=== PATIENT | female | born 1970 | race Caucasian/White ===

== ENCOUNTER 2022-01-29 11:00 | Outpatient (REF) | payer OTHER, SELFPAY ==
[2022-01-31 14:32] LABS: Immunoglobulin A 126 mg/dL (47-310)
[2022-02-02 20:37] LABS: Gliadin Deamidated IgA Ab <1.0 U/mL; Gliadin Deamidated IgG Ab <1.0 U/mL; Transglutaminase Ab IgG <1.0 U/mL; Transglutaminase IgA <1.0 U/mL
[2022-02-05 13:52] LABS: Endomysial IgA Antibody Negative (Negative)
== END 2022-01-29 11:01 | disposition home or self-care (01) ==
LOC: HO.10HDL 11:00
PROVIDERS: Visit Provider Internal Medicine
DX: R19.7 Diarrhea, unspecified (principal)
CPT/HCPCS: 36415; 82784; 86231; 86258; 86364

== ENCOUNTER 2022-02-03 10:01 | Emergency (ER) | payer OTHER, SELFPAY ==
--- NOTE | ~2022-02-03 | CT_ITS ---
EXAMINATION: CT ABDOMEN AND PELVIS WITHOUT CONTRAST CLINICAL INFORMATION: Right lower quadrant pain. Kidney stone or appendicitis? Hematuria. COMPARISON: Abdomen ultrasound from 04/03/2011. TECHNIQUE: Multidetector volumetric imaging was performed from the superior aspect of the liver through the pubic symphysis. Sagittal and coronal reformatted images were obtained on the technologist's workstation. This CT examination was performed using dose optimization techniques as appropriate, variously including the following: *Automated exposure control *Adjustment of mA and/or kV according to patient size (this includes techniques or standardized protocols for targeted exams where dose is matched to indication/reason for exam; i.e. extremities or head) *Use of iterative reconstruction technique DLP: 537 mGy-cm FINDINGS: LUNG BASES: An old small calcified granuloma is present in the right lower lobe (image 89, series 4). No suspicious lung nodule, consolidation or pleural effusion. There are a few linear opacities of minimal atelectasis in the bases. LIVER: The liver has normal size, shape, and attenuation. No evidence of liver mass. GALLBLADDER AND BILIARY TREE: Gallbladder contains a 1.6 cm rim calcified stone. No gallbladder wall thickening or pericholecystic fluid. No dilated bile ducts. PANCREAS: Normal. No edema, pancreatic ductal dilatation or mass. SPLEEN: Normal. ADRENAL GLANDS: Normal. KIDNEYS AND URETERS: Kidneys have normal size, cortical thickness and cortical attenuation with exception of a 1.7 cm simple-appearing cyst of the right kidney. No renal imaging follow-up is recommended for a simple cyst. There is mild symmetric fullness of each renal pelvis but no overt caliectasis of either kidney. No perinephric edema or perinephric fluid collection. Multiple small bilateral renal stones are present. The stones are too small for acquisition of a reliable density measurement. A cluster of two stones in the right lower pole occupies an area measuring up to 0.6 cm maximum dimension. A 0.3 cm stone is seen along the right posterior bladder wall at the level of the ureterovesical junction. BLADDER: The urinary bladder has normal wall thickness. Multiple phleboliths are seen in the lower pelvis projecting posterior to the bladder. Also, there is the 0.3 cm stone at the level of the right ureteral orifice/ureterovesical junction. BOWEL AND PERITONEUM: Stomach is unremarkable. No dilated loops of bowel. The appendix is normal. No overt bowel wall thickening or mesenteric fat stranding. No ascites or pneumoperitoneum. ABDOMINAL WALL: Unremarkable. VASCULATURE: Unremarkable. LYMPH NODES: No pathologic sized lymph nodes in the abdomen or pelvis. No inguinal lymphadenopathy. PELVIC VISCERA: The retroverted uterus has normal size and contour. A contraceptive device is well centered within the endometrium. The adnexa are unremarkable. No pelvic free fluid. SKELETAL: Moderate degenerative disc space loss, vacuum disc phenomenon, mild endplate sclerosis and osteophytosis at L5-S1. No suspicious bone lesions. CT/CT abdomen pelvis wo con IMPRESSION: * Multiple bilateral small renal stones are present. No hydronephrosis or perinephric edema. * 0.3 cm stone along the right posterior bladder wall is at the level of the ureterovesical junction. However, there is no associated hydroureter or periureteral edema. * Cholelithiasis without evidence of cholecystitis.
[2022-02-03 10:05] VITALS: BP 111/74; PULSE 50; RESP 18; O2SAT 100; BMI 24.3
[2022-02-03 10:21] LABS: MANUAL DIFF FLAG NO
[2022-02-03 10:23] LABS: Basophils Percent Auto 0.5 % (0-2); Eosinophils Absolute Auto 0.1 X10*3/uL (0.0-0.4); Eosinophils Percent Auto 1.8 % (0-4); Hematocrit 38.2 % (37.0-47.0); Hemoglobin 12.7 g/dl (12.0-16.0); Imm Gran Abs Auto 0.02 X10*3/uL (0.00-0.03); Imm Gran Pct Auto 0.4 % (0.0-0.4); Lymphocytes Absolute Auto 1.5 X10*3/uL (1.2-4.9); Lymphocytes Percent Auto 26.7 % (20-40); Mean Corpuscular HGB Conc 33.2 g/dl (31.0-35.0); Mean Corpuscular Hemoglobin 30.2 pg (27.0-33.0); Mean Corpuscular Volume 90.7 fL (80.0-98.0); Mean Platelet Volume 9.2 fL (9.4-12.3); Monocytes Absolute Auto 0.5 X10*3/uL (0.1-1.2); Monocytes Percent Auto 9.4 % (2-11); Neutrophils Absolute Auto 3.4 x10*3/uL (2.0-8.3); Neutrophils Percent Auto 61.2 % (45-73); Platelet Count 214 X10*3/uL (160-400); Red Blood Count 4.21 X10*6/uL (4.20-5.50); Red Cell Distribution Width 13.2 % (11.0-16.0); White Blood Count 5.6 X10*3/uL (4.8-10.8)
[2022-02-03 10:39] LABS: Alanine Aminotransferase 26 U/L (0-31); Aspartate Amino Transferase 30 U/L (5-31); Blood Urea Nitrogen 17 mg/dL (9-16); Estimated Glomerular Filt Rate > 60
[2022-02-03 10:48] LABS: Appearance Urine HAZY; Color Urine YELLOW; Glucose Urine UA NEG (NEG); Leukocyte Esterase Urine NEG (NEG); Nitrite Urine NEG (NEG); PH 5.5 (5.0-8.0); Specific Gravity - Urine >= 1.030 (1.005-1.025); UACC Culture Trigger NO; Urine Blood 3+ (NEG); Urine Ketones NEG (NEG); Urine Protein NEG (NEG-TRACE)
[2022-02-03 10:57] LABS: Squamous Epithelial Cell Urine 1+ /LPF
[2022-02-03 10:58] LABS: RBC Urine 30-49 /HPF (0); WBC Urine 0 /HPF (0-4)
[2022-02-03 10:59] LABS: Mucus Urine 1+ /LPF
--- NOTE | 2022-02-03 13:14 | ED_ITS ---
HPI - General Adult General Chief complaint: Abdominal Pain Stated complaint: Lower R abd pain Time Seen by Provider: 02/03/22 12:47 Source: patient Mode of arrival: ambulatory Limitations: no limitations History of Present Illness HPI narrative: 51-year-old female with history of history interstitial cystitis and kidney stones presents to the ED for sharp vaginal/groin pain and right lower quadrant abdominal pain. Patient states last night was having some right lower quadrant abdominal pain RADITING TO GROIN vaginal area. Patient states also increased urinary frequency and mild dysuria. Patient denies any vaginal lesions or vaginal discharge. Patient states she has not been sexually active for the last 4 years and has IUD. Related Data Previous Rx's Medication Instructions Recorded naproxen 500 mg tablet 500 mg PO BID PRN pain 10 days #20 02/03/22 tabs prednisone 20 mg tablet 40 mg PO DAILY 5 days #10 tabs 02/03/22 tamsulosin 0.4 mg capsule (Flomax) 0.4 mg PO DAILY 7 days #7 caps 02/03/22 Allergies Allergy/AdvReac Type Severity Reaction Status Date / Time oxycodone Allergy Abdominal Verified 02/03/22 10:05 Pain Review of Systems Review of Systems: Right lower abdominal pain/groin pain PMFSH Social History Social History Advance Directives: Yes Advance Directives Information Provided: Yes Advance Directives on File: No Physical Exam ED Vital Signs: Vital Signs - 24 hr 02/03/22 10:05 Pulse Rate 50 Respiratory Rate 18 Blood Pressure 111/74 Pulse Oximetry 100 Oxygen Delivery Method Room Air BMI result Body Mass Index 24.3 Const General: cooperative, healthy appearing, comfortable, no acute distress, well developed, alert, awake and Physically active Orientation/consciousness: patient oriented x3 HENMT Head: Yes normal to inspection, Yes No palpable skull fracture present, Yes normocephalic, Yes atraumatic and No abrasion Eyes General: appearance normal, both eyes and all related structures Neck Neck: Yes normal visual inspection, Yes full ROM, Yes no lymphadenopathy, Yes no meningeal signs, Yes trachea midline, Yes supple, No anterior neck swelling and No tender Chest Chest palpation & inspection: normal inspection of the chest and normal palpation of entire chest wall Resp Effort & Inspection: normal respiratory effort and able to speak in complete sentences Auscultation: clear to auscultation bilaterally Cardio Jugular venous distension: no JVD Heart sounds: S1 normal heart sound present and S2 normal heart sound present GI Inspection: Yes normal to inspection and No abdominal wall ecchymosis Palpation (GI): Soft to palpation, not firm, Tenderness to palpation present (GI) in the RLQ, no guarding and not rigid General: No CVA tenderness and Yes no CVA tenderness Back/Spine/Pelvis Back: no CVA tenderness, No CVA tenderness and No back tenderness Skin General skin exam: no rashes or lesions noted and elasticity normal Neuro General: patient oriented x3, gait normal, tone normal, no meningeal signs and CN's II-XI intact bilaterally Cranial nerves: Yes CN's II-XII intact bilaterally Extrem General: Yes normal to inspection and Yes full ROM Psych Appearance: grossly normal, well kempt and not disheveled Course Course Course Narrative: Patient labs ordered Reevaluation(s) Reevaluation #1: urine shows blood. Patient has not been sexually active for [address] scan ordered to make sure there is no kidney stones. Abdominal CT scan does shows right kidney stone in the bladder ureter vesicle junction. Negative for hydroureter or nephrosis. Patient discharged with Flomax and steroids. No need for antibiotics ray negative for any bacteria. patient also has a gallstone, but no cholcecystitis and was inforemd of this. Time: 15:26 Medical Decision Making MDM Narrative Medical decision making narrative: kidney stones Lab Data Result diagrams: 02/03/22 10:15 02/03/22 10:15 Labs: Lab Results 02/03/22 02/03/22 02/03/22 Range/Units 10:15 10:15 10:29 WBC 5.6 (4.8-10.8) X10*3/uL RBC 4.21 (4.20-5.50) X10*6/uL Hgb 12.7 (12.0-16.0) g/dl Hct 38.2 (37.0-47.0) % MCV 90.7 (80.0-98.0) fL MCH 30.2 (27.0-33.0) pg MCHC 33.2 (31.0-35.0) g/dl RDW 13.2 (11.0-16.0) % Plt Count 214 (160-400) X10*3/uL MPV 9.2 L (9.4-12.3) fL Immature Gran % (Auto) 0.4 (0.0-0.4) % Neut % (Auto) 61.2 (45-73) % Lymph % (Auto) 26.7 (20-40) % [place] % (Auto) 9.4 (2-11) % Eos % (Auto) 1.8 (0-4) % Baso % (Auto) 0.5 (0-2) % Lymph # (Auto) 1.5 (1.2-4.9) X10*3/uL [place] # (Auto) 0.5 (0.1-1.2) X10*3/uL Eos # (Auto) 0.1 (0.0-0.4) X10*3/uL Baso # (Auto) 0.0 (0.0-0.2) X10*3/uL Abs Immat Gran (auto) 0.02 (0.00-0.03) X10*3/uL Absolute Neuts (auto) 3.4 (2.0-8.3) x10*3/uL Absolute Nucleated RBC 0.000 (0.0-0.012) X10*3/uL Nucleated RBC % (auto) 0.0 (0.0-0.2) /100WBC Sodium 138 (135-145) mmol/L Potassium 4.3 (3.3-5.1) mmol/L Chloride 105 (96-108) mmol/L Carbon Dioxide 26 (22-29) mmol/L Anion Gap 11 L (12-20) BUN 17 H (9-16) mg/dL Creatinine 0.80 (0.5-1.4) mg/dL Estim Creat Clear Calc 83.0 Estimated GFR > 60 Random Glucose 121 H (60-115) mg/dL Calcium 9.2 (8.4-10.2) mg/dL Total Bilirubin 1.4 H (0.0-1.0) mg/dL AST 30 (5-31) U/L ALT 26 (0-31) U/L Alkaline Phosphatase 62 (39-117) U/L Total Protein 6.7 (6.5-8.0) g/dL Albumin 4.2 (3.5-5.0) g/dL Urine Color YELLOW Urine Appearance HAZY Urine pH 5.5 (5.0-8.0) Ur Specific [place] >= 1.030 H (1.005-1.025) Urine Protein NEG (NEG-TRACE) MG/DL Urine Glucose (UA) NEG (NEG) MG/DL Urine Ketones NEG (NEG) MG/DL Urine Blood 3+ H (NEG) Urine Nitrite NEG (NEG) Ur Leukocyte Esterase NEG (NEG) Urine RBC 30-49 H (0) /HPF Urine WBC 0 (0-4) /HPF Ur Squamous Epith Cells 1+ /LPF Urine Bacteria NONE /LPF Urine Mucus 1+ /LPF Discharge Plan Discharge Clinical Impression: Calculus, ureter Patient Disposition: Home, Self-Care Instructions: Ureteral Stones (ED) Additional Instructions: CT scan shows multiple kidney stones and also a stone in your ureter /bladder. you will need Flomax, pain medication, and steroids. Return to the ED immediately for any abdominal pain, nausea, vomiting, fever, chills, flank pain, or any other concerning symptoms. Prescriptions: New prednisone 20 mg tablet 40 mg PO DAILY 5 Days Qty: 10 0RF tamsulosin [Flomax] 0.4 mg capsule 0.4 mg PO DAILY 7 Days Qty: 7 0RF naproxen 500 mg tablet 500 mg PO BID PRN (Reason: pain) 10 Days Qty: 20 0RF Referrals: Mac Frias MD [Physician] - ( Right Ureter stone) Stand Alone Forms: Work/School Release Interventions: ED Discharge Assessment Last Done: 02/03/22 15:51 Discharge Date/Time: 02/03/22 15:51 Print Language: Danish
[2022-02-03 14:38] LABS: Albumin Level 4.2 g/dL (3.5-5.0); Alkaline Phosphatase 62 U/L (39-117); Anion Gap 11 (12-20); Bilirubin Total 1.4 mg/dL (0.0-1.0); Calcium 9.2 mg/dL (8.4-10.2); Carbon Dioxide 26 mmol/L (22-29); Chloride 105 mmol/L (96-108); Glucose Random 121 mg/dL (60-115); Potassium 4.3 mmol/L (3.3-5.1); Sodium 138 mmol/L (135-145); Total Protein 6.7 g/dL (6.5-8.0)
== END 2022-02-03 15:51 | disposition home or self-care (01) ==
PROVIDERS: Emergency Provider Emergency Medicine; PCP Nurse Practitioner Family
DX: N20.2 Calculus of kidney with calculus of ureter (principal); Z87.442 Personal history of urinary calculi
CPT/HCPCS: 36415; 74176; 80053; 81001; 85025; 99283; 99284

== ENCOUNTER 2022-03-10 16:44 | Outpatient (REF) | payer OTHER, SELFPAY ==
[2022-03-18 13:12] LABS: Stone Source KIDNEY STONE
== END 2022-03-10 16:45 | disposition home or self-care (01) ==
LOC: HO.LNP 16:44
PROVIDERS: Visit Provider Urology
DX: N20.0 Calculus of kidney (principal)
CPT/HCPCS: 82365; 88300

== ENCOUNTER 2022-05-27 06:23 | Day surgery (SDC) | payer OTHER, SELFPAY ==
--- NOTE | 2022-05-26 13:44 | HO.ANESPROP2 ---
Documented by User: Ita Aburto NP 05/26/22 13:45 HPI - Anesthesia Eval Consult details Narrative: 51yo F for Colonoscopy PMFSH Active Problems Active Problems: All Active Problems (Updated 05/26/22 @ 13:32 by Azeb Moe, OWEN) Nephrolithiasis (Acute) Past Medical History Medical History Anxiety and depression Interstitial cystitis Rheumatoid arthritis Surgical History Surgical History H/O dilation and curettage Hx of tonsillectomy Social History Social History Patient Tobacco Use Status: Never used Tobacco Use of substances other than those prescribed or required for medical reasons: No Are you DNR?: No Advance Directives: No Advance Directives Information Provided: Yes Meds Allergies Allergy/AdvReac Type Severity Reaction Status Date / Time oxycodone Allergy Abdominal Verified 03/09/22 15:11 Pain Home Medications Medication Instructions Recorded Confirmed Last Taken Type adalimumab 40 mg/0.8 mL mg subcut 05/26/22 05/26/22 Unknown History subcutaneous pen kit (Humira Pen) alprazolam 0.25 mg tablet 1 tab PO BID 05/26/22 05/26/22 Unknown History bupropion HCl 100 mg tablet,12 hr 2 tab PO DAILY 05/26/22 05/26/22 Unknown History sustained-release methotrexate sodium 2.5 mg tablet 10 tab PO QWEEK 05/26/22 05/26/22 Unknown History Exam Exam Date and Time: May 26, 2022 1344 Pertinent Lab Results Pertinent Lab Results: Laboratory Tests 02/03/22 02/03/22 10:15 10:15 WBC 5.6 Hgb 12.7 Hct 38.2 Plt Count 214 Sodium 138 Potassium 4.3 Chloride 105 Carbon Dioxide 26 BUN 17 H Creatinine 0.80 Assessment and Plan Assessment Anesthesia Assessment: Chart Reviewed Documented by User: Efrain Guaman MD 05/27/22 07:32 PMFSH Active Problems Active Problems: All Active Problems (Updated 05/26/22 @ 13:32 by Azeb Moe, RN) Nephrolithiasis (Acute)[place] Past Medical History Medical History Anxiety and depression Interstitial cystitis Rheumatoid arthritis Family History Family history of problems with anesthesia: No Surgical History Surgical History H/O dilation and curettage Hx of tonsillectomy History of Problems with Anesthesia: No Social History Social History Patient Tobacco Use Status: Never used Tobacco Use of substances other than those prescribed or required for medical reasons: No Are you DNR?: No Advance Directives: No Advance Directives Information Provided: Yes Meds Allergies Allergy/AdvReac Type Severity Reaction Status Date / Time oxycodone Allergy Abdominal Verified 03/09/22 15:11 Pain Home Medications Medication Instructions Recorded Confirmed Last Taken Type adalimumab 40 mg/0.8 mL mg subcut 05/26/22 05/26/22 Unknown History subcutaneous pen kit (Humira Pen) alprazolam 0.25 mg tablet 1 tab PO BID 05/26/22 05/26/22 Unknown History bupropion HCl 100 mg tablet,12 hr 2 tab PO DAILY 05/26/22 05/26/22 Unknown History sustained-release methotrexate sodium 2.5 mg tablet 10 tab PO QWEEK 05/26/22 05/26/22 Unknown History Exam Airway Mallampati Class: I TM Dist: >3cm Loose/Missing/Broken Teeth: No Heart: rrr Assessment and Plan Final Anesthetic Review Family History of Problems with Anesthesia: No History of Problems with Anesthesia: No ASA Class: II Final Preanesthetic Review: No Changes in Pt Med Stat, Meds/Allgs Chart Reviewed, Consent Obtained/Reviewed and Anes Risks/Benef Reviewed Patient Risk: Low Procedure Risk: Low Anesthetic Plan Anesthetic Plan: MAC: Disposition: Standard PACU
[2022-05-27 06:47] VITALS: BP 119/86; PULSE 64; RESP 18; TEMP 36.3; O2SAT 96; BMI 23.6
[2022-05-27] MEDS: Lactated Ringers 1,000 ML 100 ML IVCONT (07:33)
[2022-05-27 08:30] VITALS: BP 116/76; PULSE 67; RESP 20; TEMP 36.3; O2SAT 99
--- NOTE | 2022-05-27 08:30 | P.BOP_ITS ---
Brief Operative Note Date of Service: 05/27/22 Pre-op diagnosis: Screening Post-op diagnosis: other (Polyps) Procedure: Colonoscopy to the cecum and TI with bx/removal of polyp, and hot snare polypectomy of an AC polyp with placement of 1 Resolution clip. Surgeon: Mychal Martinez Anesthesia: MAC Was an Insights Analyst used for this Procedure?: No Estimated blood loss (mL): 2.0 Pathology: other (A. Cecal polyp B. Ascending colon polyp) Condition: stable Disposition: PACU
[2022-05-27 08:45] VITALS: BP 126/77; PULSE 51; RESP 20; TEMP 36.3; O2SAT 100
--- NOTE | 2022-05-27 08:59 | OP_ITS ---
SURGEON: Mychal Martinez MD INDICATIONS: The patient presents for evaluation of colorectal cancer screening. Full consent obtained from her for this, including risks of bleeding and perforation. PREOPERATIVE DIAGNOSIS: Colorectal cancer screening. POSTOPERATIVE DIAGNOSIS: PROCEDURE PERFORMED: Colonoscopy to the cecum and terminal ileum with biopsy and removal of polyp, and hot snare polypectomy with placement of 1 resolution clip. ESTIMATED BLOOD LOSS: COMPLICATIONS: ANESTHESIA: ASSISTANTS: SPECIMENS: POSTOPERATIVE DIAGNOSES: Colorectal cancer screening, colon polyps, diverticulosis, and internal hemorrhoids. PREOPERATIVE MEDICATION USED: Monitored anesthesia care. DESCRIPTION OF PROCEDURE: The patient was placed in the left lateral decubitus position. The digital rectal exam revealed no abnormalities. The Olympus video pediatric colonoscope was entered into the rectum and advanced easily to the cecum. Once in the cecum, I did identify normal-appearing cecal pouch with appendiceal orifice and a normal-appearing ileocecal valve. The entire cecum was well visualized and appeared normal other than an approximately 3 or 4 mm polyp, which was removed with cold biopsy forceps completely. The terminal ileum was cannulated and appeared normal. The scope was withdrawn back in the colon. The remainder of the cecum appeared normal. The scope was then slowly withdrawn assessing all mucosal surfaces carefully. Preparation was excellent. In the proximal ascending colon was an approximately 10-12 mm slightly raised polyp, which was removed by hot snare polypectomy and recovered by suction. The polypectomy site appeared clean, without any sign of residual polyp, nor bleeding. A single resolution clip was applied with good hemostasis and good deployment. I did not visualize any other polyps, colitis, or angiodysplasia. There was a mild amount of sigmoid diverticulosis. In the rectum, scope was retroflexed visualizing internal hemorrhoids, but no other pathology. The rectal mucosa appeared normal. The scope was straightened and withdrawn from the patient. She tolerated the procedure well and was returned to recovery area in stable condition. IMPRESSION: 1. Colon polyps. 2. Diverticulosis. 3. Internal hemorrhoids. PLAN: The results of the pathology will be checked. If the larger polyp is a tubular adenoma or serrated polyp, I would recommend a repeat colonoscopy in 3 years. If the larger polyp is only hyperplastic and the cecal polyp is a tubular adenoma, I would recommend a followup colonoscopy in 5 years. If both polyps are only hyperplastic, I would then recommend a followup colonoscopy in 10 years. She was advised not to use any aspirin and NSAIDs for 1 week. Mychal Martinez MD RMW/RAMILA / [id number]
[2022-05-27 09:00] VITALS: BP 128/84; PULSE 51; RESP 20; O2SAT 100
--- NOTE | 2022-05-27 09:41 | PC.NURSE ---
PATIENT INSTRUCTED TO NOT USE ASA AND/OR NSAIDS FOR ONE WEEK PER DISCHARGE INSTRUCTIONS. PATIENT STATES SHE COULD NOT STOP USING INDOCIN FOR HER RA. DR. VELARDE NOTIFIED AND HE INSTRUCTED THIS NURSE TO MAKE A NOTE THAT PATIENT WAS INSTRUCTED. PT WAS RE-INSTRUCTED TO NOT TAKE HER INDOCIN FOR ONE WEEK POST PROCEDURE FOR THE RISK OF BLEEDING.
== END 2022-05-27 09:44 | disposition home or self-care (01) ==
PROVIDERS: PCP Nurse Practitioner Family; Visit Provider Internal Medicine
PROC: 0DJD8ZZ Inspection of Lower Intestinal Tract, Via Natural or Artificial Opening Endoscopic (ICD-10-PCS; CPT 45378; principal; 2022-05-27 07:30)
DX: Z12.11 Encounter for screening for malignant neoplasm of colon (principal); D12.0 Benign neoplasm of cecum; D12.2 Benign neoplasm of ascending colon; K57.30 Diverticulosis of large intestine without perforation or abscess without bleeding; K64.8 Other hemorrhoids; K58.9 Irritable bowel syndrome, unspecified; R19.7 Diarrhea, unspecified; M06.9 Rheumatoid arthritis, unspecified; N30.10 Interstitial cystitis (chronic) without hematuria; F41.8 Other specified anxiety disorders; Z79.899 Other long term (current) drug therapy; Z88.8 Allergy status to other drugs, medicaments and biological substances; Z87.442 Personal history of urinary calculi
CPT/HCPCS: 45385; 45380; 88305

== ENCOUNTER 2022-10-10 17:19 | Emergency (ER) | payer OTHER, SELFPAY ==
--- NOTE | 2022-10-10 17:31 | ED.SKABFB ---
HPI - Skin/Abscess/Foreign Bdy General Chief complaint: Animal Bite <JOSE Diaz Last Filed: 10/10/22 17:32> Stated complaint: right hand dog bite <JOSE Diaz Last Filed: 10/10/22 17:32> Time Seen by Provider: 10/10/22 19:13 <JOSE Diaz Last Filed: 10/10/22 17:32> Source: patient <Niru Ashley NP - Last Filed: 10/10/22 22:05> Mode of arrival: ambulatory <SUYAPA Cruz Last Filed: 10/10/22 22:05> Limitations: no limitations <SUYAPA Cruz Last Filed: 10/10/22 22:05> History of Present Illness HPI narrative: 52-year-old female presents with multiple skin abrasion and lacerations from a dog bite. Patient was rescuing her dog while it was being attacked by 2 other dogs. When she picked up her dog, her dog bit her in the hand. She has lacerations to the tip of the right thumb and to the right index finger. <SUYAPA Cruz Last Filed: 10/10/22 22:05> MD complaint: laceration and other (Dog bite) <SUYAPA Cruz Last Filed: 10/10/22 22:05> Onset (ago): hour(s) (Within the hour of arrival) <SUYAPA Cruz Last Filed: 10/10/22 22:05> Tetanus up to date: unsure <SUYAPA Cruz Last Filed: 10/10/22 22:05> Location: R hand <SUYAPA Cruz Last Filed: 10/10/22 22:05> Severity: moderate <SUYAPA Cruz Last Filed: 10/10/22 22:05> Severity scale (1-10): 5 <SUYAPA Cruz Last Filed: 10/10/22 22:05> Quality: burning and aching <SUYAPA Cruz Last Filed: 10/10/22 22:05> Pain Consistency: constant <SUYAPA Cruz Last Filed: 10/10/22 22:05> Relieving factors: rest <Niru Ashley NP - Last Filed: 10/10/22 22:05> Exacerbating factors: palpation and movement <Niru Ashley NP - Last Filed: 10/10/22 22:05> Associated symptoms: denies other symptoms <SUYAPA Cruz Last Filed: 10/10/22 22:05> Treatments prior to arrival: bandages <SUYAPA Cruz Last Filed: 10/10/22 22:05> Related Data Home medications: Home Medications Medication Instructions Recorded Confirmed adalimumab 40 mg/0.8 mL mg subcut 05/26/22 05/26/22 subcutaneous pen kit (Humira Pen) alprazolam 0.25 mg tablet 1 tab PO BID 05/26/22 05/26/22 bupropion HCl 100 mg tablet,12 hr 2 tab PO DAILY 05/26/22 05/26/22 sustained-release methotrexate sodium 2.5 mg tablet 10 tab PO QWEEK 05/26/22 05/26/22 Previous Rx's Medication Instructions Recorded amoxicillin 875 mg-potassium 1 tab PO Q12H 10 days #20 tabs 10/10/22 clavulanate 125 mg tablet ibuprofen 600 mg tablet 600 mg PO Q6H PRN pain #90 tabs 10/10/22 <JOSE Diaz - Last Filed: 10/10/22 17:32> Allergies/Adverse reactions: Allergies Allergy/AdvReac Type Severity Reaction Status Date / Time oxycodone Allergy Abdominal Verified 03/09/22 15:11 Pain <JOSE Diaz Last Filed: 10/10/22 17:32> Review of Systems Review of Systems: Constitutional: No Fever, No Chills Cardiovascular: No Chest Pain, No SOB Respiratory: No Cough, No Dyspnea Musculoskeletal: positive right thumb and index pain, No Myalgias, No Joint Swelling Skin: Positive multiple lacerations to the right index and thumb, No rash Neuro: No Weakness, No Numbness, No Paresthesias, No Dizziness, No Headache <SUYAPA Cruz Last Filed: 10/10/22 22:05> Yes all other systems are reviewed and are negative <Niru Ashley NP - Last Filed: 10/10/22 22:05> [facility] Past Medical History Attestation statement: The following information was validated with the patient. <Niru Ashley NP - Last Filed: 10/10/22 22:05> Source: old records reviewed <Niru Ashley NP - Last Filed: 10/10/22 22:05> Medical History: Medical History Anxiety and depression Interstitial cystitis Rheumatoid arthritis <JOSE Diaz - Last Filed: 10/10/22 17:32> Surgical History: Surgical History H/O dilation and curettage Hx of tonsillectomy <JOSE Diaz - Last Filed: 10/10/22 17:32> Social History Social History: Social History Patient Tobacco Use Status: Never used Tobacco Advance Directives: No Advance Directives Information Provided: No <JOSE Diaz - Last Filed: 10/10/22 17:32> Physical Exam Vital Signs: Vital Signs: Last Vital Signs Temp 97.8 F 10/10/22 17:32 Pulse 78 10/10/22 17:32 Resp 16 10/10/22 17:32 BP 128/90 H 10/10/22 17:32 Pulse Ox 98 10/10/22 17:32 O2 Del Method Room Air 10/10/22 17:32 BMI result Body Mass Index 26.6 <JOSE Diaz - Last Filed: 10/10/22 17:32> Vital Signs: Last Vital Signs Temp 97.8 F 10/10/22 17:32 Pulse 78 10/10/22 17:32 Resp 16 10/10/22 17:32 BP 128/90 H 10/10/22 17:32 Pulse Ox 98 10/10/22 17:32 O2 Del Method Room Air 10/10/22 17:32 BMI result Body Mass Index 26.6 <Niru Ashley NP - Last Filed: 10/10/22 22:05> Appearance: Alert. Oriented X3. No acute distress. Eyes: Pupils equal, round and reactive to light. CVS: Normal heart rate and rhythm. Pulses normal. Respiratory: No respiratory distress. Breath sounds normal. Skin: 0.5 cm circumferential laceration consistent with a dog bite to the right thumb pad, multiple lacerations with skin avulsion to the right index finger between the D IP and MCP. Extremities: Full range of motion to all digits. Neuro: No motor deficit. No sensory deficit. Cranial nerves 2-12 intact. <Niru Ashley NP - Last Filed: 10/10/22 22:05> Course Course Course Narrative: This is an RME: Additional HPI, ROS, PE not included below will be deferred to primary provider. 52-year-old female presents with dog bite to right hand. Her dog bit her 1st 2 fingers on her right hand. Happened prior to arrival. Area has been bleeding ever since. Not up-to-date on tetanus shot. Dog is vaccinated. Physical exam with punctures to finger 1 in 2 on right hand. Bleeding. Dressing applied. Plan I ordered a tetanus shot. Patient is appropriate for minor care <JOSE Diaz - Last Filed: 10/10/22 17:32> This is an RME: Additional HPI, ROS, PE not included below will be deferred to primary provider. 52-year-old female presents with dog bite to right hand. Her dog bit her 1st 2 fingers on her right hand. Happened prior to arrival. Area has been bleeding ever since. Not up-to-date on tetanus shot. Dog is vaccinated. Physical exam with punctures to finger 1 in 2 on right hand. Bleeding. Dressing applied. Plan I ordered a tetanus shot. Patient is appropriate for minor care 52-year-old female presents with multiple wounds from her dog biting her. Her dog is fully vaccinated. Her dog was being attacked by 2 other dogs, and she was rescuing her dog when her dog bit her hand. Digital block to both thumb and index finger completed prior to wound irrigation and cleaning. Patient tolerated digital block well. Wound was irrigated with sterile saline and cleansed with Betadine scrub. Patient's dog is properly vaccinated, no risk for rabies. Will treat with Steri-Strips to keep flap in place, patient does understand that we will not be suturing the finger as it is not indicated for a dog bite and high risk of infection. Will treat with Augmentin 875 mg twice a day and ibuprofen 600 mg. Updated Tdap vaccine today. 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 I did recommend that this patient follow up with her primary care physician this week, and that if symptoms worsen with infection that she should present to the emergency department immediately. Patient verbalized understanding of and agrees to plan of care discharge home. Verbalized understanding of signs symptoms indicating need for emergent intervention. <Niru Ashley NP - Last Filed: 10/10/22 22:05> Medications Administered Discontinued Medications Generic Name Dose Route Start Last Admin Trade Name Freq PRN Reason Stop Dose Admin Amoxicillin/Clavulanate Potassium 875 mg 10/10/22 19:44 10/10/22 20:10 Amoxicillin/Potassium Clav 875 Mg Tablet PO 10/10/22 19:45 875 mg ONCE ONE Administration Diphtheria/Tetanus/Acell Pertussis 0.5 ml 10/10/22 17:31 10/10/22 19:08 Diphth,Pertus(Acell),Tet Adult 0.5 Ml Syringe IM 10/10/22 17:32 0.5 ml .ONCE ONE Administration <JOSE Diaz - Last Filed: 10/10/22 17:32> Medications Administered Discontinued Medications Generic Name Dose Route Start Last Admin Trade Name Freq PRN Reason Stop Dose Admin Amoxicillin/Clavulanate Potassium 875 mg 10/10/22 19:44 10/10/22 20:10 Amoxicillin/Potassium Clav 875 Mg Tablet PO 10/10/22 19:45 875 mg ONCE ONE Administration Diphtheria/Tetanus/Acell Pertussis 0.5 ml 10/10/22 17:31 10/10/22 19:08 Diphth,Pertus(Acell),Tet Adult 0.5 Ml Syringe IM 10/10/22 17:32 0.5 ml .ONCE ONE Administration <Niru Ashley NP - Last Filed: 10/10/22 22:05> Medical Decision Making Differential Diagnosis Differential Diagnoses: The differential diagnosis associated with the presentation includes <Niru Ashley NP - Last Filed: 10/10/22 22:05> Laceration <Niru Ashley NP - Last Filed: 10/10/22 22:05> External Record Review External record reviewed: Outpatient record, Prior outpatient labs and Prior outpatient radiology <Niru Ashley NP - Last Filed: 10/10/22 22:05> Prescription Management I considered prescription management with: Antibiotic <Niru Ashley NP - Last Filed: 10/10/22 22:05> Procedures Nerve Block Nerve Block 1: Time out performed: Yes <Niru Ashley NP - Last Filed: 10/10/22 22:05> Local Anesthetic: lidocaine 1% <Niru Ashley NON DESTRUCTIVE EVALUATION SPECIALIST - Last Filed: 10/10/22 22:05> Amount of anesthesia used (mL): 3 <Niru Ashley NP - Last Filed: 10/10/22 22:05> Side: right <Niru Ashley NP - Last Filed: 10/10/22 22:05> Nerve Blocks: digital (Index) <Niru Ashley NON DESTRUCTIVE EVALUATION SPECIALIST - Last Filed: 10/10/22 22:05> Procedure Successful: Yes <Niru Ashley NON DESTRUCTIVE EVALUATION SPECIALIST - Last Filed: 10/10/22 22:05> Patient Tolerated Procedure: well and no complications <Niru Ashley NP - Last Filed: 10/10/22 22:05> Complications: none <Niru Ashley NP - Last Filed: 10/10/22 22:05> Nerve Block 2: Time out performed: Yes <Niru Ashley NP - Last Filed: 10/10/22 22:05> Local Anesthetic: lidocaine 1% <Niru Ashley NON DESTRUCTIVE EVALUATION SPECIALIST - Last Filed: 10/10/22 22:05> Amount of anesthesia used (mL): 3 <Niru Ashley NP - Last Filed: 10/10/22 22:05> Side: right <Niru Ashley NP - Last Filed: 10/10/22 22:05> Nerve Blocks: digital (Thumb) <Niru Ashley NP - Last Filed: 10/10/22 22:05> Procedure Successful: Yes <Niru Ashley NP - Last Filed: 10/10/22 22:05> Patient Tolerated Procedure: well and no complications <Niru Ashley NP - Last Filed: 10/10/22 22:05> Complications: none <Niru Ashley NP - Last Filed: 10/10/22 22:05> Discharge Plan Discharge Clinical Impression: Dog bite <JOSE Diaz - Last Filed: 10/10/22 17:32> Patient Disposition: Home, Self-Care <JOSE Diaz - Last Filed: 10/10/22 17:32> Instructions: Animal Bite (ED) <JOSE Diaz - Last Filed: 10/10/22 17:32> Additional Instructions: You were evaluated for a dog bite to your right index finger and right thumb. Please keep the dressing in place. Do not apply any additional dressings. Keep her hand clean and dry. Take Augmentin 875 mg every 12 hours for the next 10 days. If you notice any indication of infection, please present to the emergency department immediately as you may need IV antibiotics. Alternate Tylenol 650 mg every 6 hours and Motrin 600 mg every 6 hours as needed for pain and fever management. Consider taking these medications 3 hours apart so you have pain and fever management every 3 hours. Write down what time you take these medications to prevent accidental overdose. Motrin is the same medication as Advil and ibuprofen. Tylenol is the same medication as acetaminophen. Thank you for choosing this emergency department for evaluation. Please follow-up with primary care physician as needed. Return to the emergency department for any new, concerning, or worsening symptoms. <JOSE Diaz - Last Filed: 10/10/22 17:32> Prescriptions: New amoxicillin-pot clavulanate 875-125 mg tablet 1 tab PO Q12H 10 Days Qty: 20 0RF ibuprofen 600 mg tablet 600 mg PO Q6H PRN (Reason: pain) Qty: 90 0RF No Action bupropion HCl 100 mg tablet sustained-release 12 hr 2 tab PO DAILY alprazolam 0.25 mg tablet 1 tab PO BID methotrexate sodium 2.5 mg tablet 10 tab PO QWEEK Humira Pen 40 mg/0.8 mL pen injector kit subcut <JOSE Diaz - Last Filed: 10/10/22 17:32> Referrals: Nickolas,Marina, NON DESTRUCTIVE EVALUATION SPECIALIST [Primary Care Provider] - 5 days (Dog bite follow-up) <JOSE Diaz - Last Filed: 10/10/22 17:32> Stand Alone Forms: Work/School Release <JOSE Diaz - Last Filed: 10/10/22 17:32> Interventions: ED Discharge Assessment Last Done: 10/10/22 20:17 <JOSE Diaz - Last Filed: 10/10/22 17:32> Discharge Date/Time: 10/10/22 20:17 <JOSE Diaz - Last Filed: 10/10/22 17:32>
[2022-10-10 17:32] VITALS: BP 128/90; PULSE 78; RESP 16; TEMP 36.6; O2SAT 98; BMI 26.6
[2022-10-10] MEDS: Diphth,Pertus(ACell),Tet Adult 0.5 ML SYRINGE IM (19:08)
[2022-10-10] MEDS: Amoxicillin/Potassium Clav 875 MG TABLET PO (20:10)
== END 2022-10-10 20:17 | disposition home or self-care (01) ==
PROVIDERS: Emergency Provider Emergency Medicine Emergency Medical Services; PCP Nurse Practitioner Family
DX: S61.051A Open bite of right thumb without damage to nail, initial encounter (principal); S61.250A Open bite of right index finger without damage to nail, initial encounter; W54.0XXA Bitten by dog, initial encounter; Y93.89 Activity, other specified; Y92.414 Local residential or business street as the place of occurrence of the external cause; Y99.9 Unspecified external cause status
CPT/HCPCS: 64450; 90471; 90715; 99282; 99284

== ENCOUNTER 2023-05-18 20:11 | Emergency (ER) | payer OTHER, SELFPAY ==
--- NOTE | ~2023-05-18 | CT_ITS ---
EXAMINATION: CT ABDOMEN AND PELVIS WITHOUT CONTRAST CLINICAL INFORMATION: Left-sided flank pain COMPARISON: CT abdomen pelvis 02/03/2022 TECHNIQUE: Multidetector volumetric imaging was performed from the superior aspect of the liver through the pubic symphysis. Sagittal and coronal reformatted images were obtained on the technologist's workstation. This CT examination was performed using dose optimization techniques as appropriate, variously including the following: *Automated exposure control *Adjustment of mA and/or kV according to patient size (this includes techniques or standardized protocols for targeted exams where dose is matched to indication/reason for exam; i.e. extremities or head) *Use of iterative reconstruction technique DLP: 518 mGy-cm FINDINGS: LUNG BASES: The visualized lung bases are unremarkable. LIVER, GALLBLADDER, AND BILIARY TREE: The liver is normal in size, shape, and attenuation. No focal hepatic lesion or biliary ductal dilatation is present. The gallbladder contains a large rim calcified gallstone but is otherwise unremarkable with no evidence of obvious pericholecystic inflammatory changes. PANCREAS: Unremarkable. SPLEEN: Unremarkable. ADRENAL GLANDS: Unremarkable. KIDNEYS AND URETERS: Left: At the time of the prior study, 2 small punctate calcifications were present in the left lower pole and there was no hydronephrosis. On the current study, there is mild hydronephrosis with mild dilatation of the ureter down to the level of a small punctate stone at the left UVJ. No left-sided renal masses are seen. Right multiple small punctate calcifications seen in the right kidney the largest measuring 3 mm consistent with nephrolithiasis. There is a benign Bosniak class II cm cyst in the mid kidney which needs no additional imaging or follow-up. No solid renal masses. No pelvocaliectasis. The ureter is unremarkable. BLADDER: Unremarkable aside from stone at the left UVJ. GASTROINTESTINAL TRACT: The small and large bowel are unremarkable. Scattered colonic diverticula without diverticulitis. The appendix is unremarkable. ABDOMINAL WALL: No significant hernia is appreciated. LYMPH NODES: Normal. VASCULAR: Unremarkable. PELVIC VISCERA: Retroverted uterus contains an IUD. An abnormal adnexal mass or free fluid is not seen OSSEOUS STRUCTURES: Degenerative changes are present probably at L5-S1. CT/CT abdomen pelvis wo IV con IMPRESSION: 1. There is a small punctate stone at the left UVJ causing mild left-sided hydronephrosis. 2. Nonobstructing right renal calculi and one additional small left renal calculus. 3. Cholelithiasis without cholecystitis. 4. Colonic diverticulosis without diverticulitis. 5. Retroverted uterus with IUD. 6. Degenerative changes L5-S1. Fleischner guidelines were followed.
[2023-05-18 20:19] VITALS: BP 114/61; PULSE 51; RESP 16; TEMP 36.4; O2SAT 100; BMI 22.8
--- NOTE | 2023-05-18 20:20 | ED_ITS ---
HPI - Abdominal Pain General Chief Complaint: Abdominal Pain Stated Complaint: ?Kidney stones Time Seen by Provider: 05/18/23 22:40 Source: patient Mode of arrival: ambulatory Limitations: no limitations History of Present Illness HPI narrative: Patient is of kidney stones otherwise healthy came with sharp pain and left lower abdomen felt like pain in vagina similar to that the past started early a.m. today got worse during the day with nausea and vomiting pain radiating to left flank area Related Data Home Medications Medication Instructions Recorded Confirmed adalimumab 40 mg/0.8 mL mg subcut 05/26/22 05/26/22 subcutaneous pen kit (Humira Pen) alprazolam 0.25 mg tablet 1 tab PO BID 05/26/22 05/26/22 bupropion HCl 100 mg tablet,12 hr 2 tab PO DAILY 05/26/22 05/26/22 sustained-release methotrexate sodium 2.5 mg tablet 10 tab PO QWEEK 05/26/22 05/26/22 Previous Rx's Medication Instructions Recorded amoxicillin 875 mg-potassium 1 tab PO Q12H 10 days #20 tabs 10/10/22 clavulanate 125 mg tablet ibuprofen 600 mg tablet 600 mg PO Q6H PRN pain #90 tabs 10/10/22 ibuprofen 600 mg tablet 600 mg PO Q6H PRN fever or pain 05/19/23 #30 tabs tamsulosin 0.4 mg capsule (Flomax) 0.4 mg PO BEDTIME #10 caps 05/19/23 Allergies Allergy/AdvReac Type Severity Reaction Status Date / Time oxycodone Allergy Abdominal Verified 03/09/22 15:11 Pain Review of Systems Review of Systems Yes all other systems are reviewed and are negative [facility] Past Medical History Medical History Interstitial cystitis Anxiety and depression Rheumatoid arthritis Surgical History H/O dilation and curettage Hx of tonsillectomy Social History Social History Patient Tobacco Use Status: Never used Tobacco Smoked in Last 30 Days: No Use of substances other than those prescribed or required for medical reasons: No Advance Directives: No Advance Directives Information Provided: No Patient : No Physical Exam ED Vital Signs: Vital Signs - 24 hr 05/18/23 20:19 05/18/23 22:35 05/19/23 00:00 Temperature 97.5 F 97.8 F 97.8 F Pulse Rate 51 65 67 Respiratory Rate 16 16 16 Blood Pressure 114/61 110/71 111/61 Pulse Oximetry 100 97 95 Oxygen Delivery Method Room Air Room Air Room Air BMI result Body Mass Index 22.8 Appearance: Alert. Oriented X3. No acute distress. ENT: Pharynx normal. Oral Mucosa moist Neck: Normal inspection. Neck supple. CVS: Normal heart rate and rhythm. Pulses normal. Respiratory: No respiratory distress. Equal air entry bilateral, Abdomen: Soft deep tenderness left lower Bowel sounds are present, no mass palpable, no CVA tenderness Skin: Skin warm and dry. Normal skin color. Normal skin turgor. Extremities: No lower extremity edema. No calf tenderness Neuro: Oriented X 3. No motor deficit. Course Course Course Narrative: This is an RME: Additional HPI, ROS, PE not included below will be deferred to primary provider. Patient is a 52-year-old female presenting to the emergency department with concern for kidney stone. She states that she had vaginal pain upon awakening this morning, states this is tell-tale sign of kidney stone , denies abnormal vaginal discharge, bleeding. Denies dysuria, urinary frequency/urgency/hesitancy, hematuria. Pain has been unrelieved with APAP throughout the day. Tonight with pain to L hip radiating up her left side ABD and into her L back. Now experiencing nausea and vomiting this evening. Plan: Labs, urinalysis, imaging deferred to primary provider Medical Decision Making Medical Decision Making [facility] Narrative: Patient with small stone in left UVJ with mild hydro feeling much better after pain medication discharge patient home Flomax and ibuprofen Differential Diagnosis Differential Diagnoses: The differential diagnosis associated with the presentation includes Admission/Observation Consideration of admission/observation: Escalation of care including admission/observation considered Lab Data [facility] Lab Attestation statement: I reviewed the patient's lab results. 05/18/23 22:24 05/18/23 22:24 Labs: Lab Results 05/18/23 Range/Units 22:24 WBC 9.1 (4.8-10.8) X10*3/uL RBC 4.24 (4.20-5.50) X10*6/uL Hgb 12.7 (12.0-16.0) g/dl Hct 38.0 (37.0-47.0) % MCV 89.6 (80.0-98.0) fL MCH 30.0 (27.0-33.0) pg MCHC 33.4 (31.0-35.0) g/dl RDW 13.1 (11.0-16.0) % Plt Count 237 (160-400) X10*3/uL MPV 9.3 L (9.4-12.3) fL Immature Gran % (Auto) 0.4 (0.0-0.4) % Neut % (Auto) 76.5 H (45-73) % Lymph % (Auto) 13.0 L (20-40) % [place] % (Auto) 8.3 (2-11) % Eos % (Auto) 1.1 (0-4) % Baso % (Auto) 0.7 (0-2) % Lymph # (Auto) 1.2 (1.2-4.9) X10*3/uL [place] # (Auto) 0.8 (0.1-1.2) X10*3/uL Eos # (Auto) 0.1 (0.0-0.4) X10*3/uL Baso # (Auto) 0.1 (0.0-0.2) X10*3/uL Abs Immat Gran (auto) 0.04 H (0.00-0.03) X10*3/uL Absolute Neuts (auto) 7.0 (2.0-8.3) x10*3/uL Absolute Nucleated RBC 0.000 (0.0-0.012) X10*3/uL Nucleated RBC % (auto) 0.0 (0.0-0.2) /100WBC Sodium 142 (135-145) mmol/L Potassium 3.9 (3.3-5.1) mmol/L Chloride 107 (96-108) mmol/L Carbon Dioxide 30 H (22-29) mmol/L Anion Gap 9 L (12-20) BUN 26 H (9-16) mg/dL Creatinine 0.93 (0.5-1.4) mg/dL Estim Creat Clear Calc 70.6 Estimated GFR > 60 Random Glucose 92 (60-115) mg/dL Calcium 9.6 (8.4-10.2) mg/dL Magnesium 2.0 (1.6-2.6) mg/dL Total Bilirubin 0.7 (0.0-1.0) mg/dL Direct Bilirubin 0.2 (0.0-0.5) mg/dL AST 30 (5-31) U/L ALT 24 (0-31) U/L Alkaline Phosphatase 57 (39-117) U/L Total Protein 6.7 (6.5-8.0) g/dL Albumin 4.0 (3.5-5.0) g/dL Lipase 25 (8-78) U/L Urine Color Yellow Urine Appearance Clear Urine pH 5.5 (5.0-9.0) Ur Specific [place] >= 1.030 H (1.005-1.025) Urine Protein Negative (Neg-Trace) mg/dL Urine Glucose (UA) Negative (Negative) mg/dL Urine Ketones Trace (Negative) mg/dL Urine Blood Large (3+) H (Negative) Urine Nitrite Negative (Negative) Ur Leukocyte Esterase Negative (Negative) Urine RBC 11-20 H (0-2) /HPF Urine WBC 0-5 (0-5) /HPF Ur Squamous Epith Cells 0-2 (0-2) /HPF Urine Bacteria None Seen (None Seen) Hyaline Casts 0-2 (0-2) /LPF Independent Interpretation I performed an independent interpretation of an: CT Scan Radiology Impression Discussion of test interpretation with radiology: I have reviewed the radiologist's reading. Medications Administered Discontinued Medications Generic Name Dose Route Start Last Admin Trade Name Freq PRN Reason Stop Dose Admin Tamsulosin HCl 0.4 mg 05/19/23 00:03 05/19/23 00:17 Tamsulosin Hcl 0.4 Mg Capsule PO 05/19/23 00:04 0.4 mg ONCE ONE Administration Discharge Plan Discharge Clinical Impression: Kidney calculus Patient Disposition: Home, Self-Care Instructions: Kidney Stones (ED) Additional Instructions: Drink plenty of fluids Take Flomax to keep the tube dilated tele passed the stone Tylenol/Motrin for pain Follow with urologist if pain continued Prescriptions: New tamsulosin [Flomax] 0.4 mg capsule 0.4 mg PO BEDTIME Qty: 10 0RF ibuprofen 600 mg tablet 600 mg PO Q6H PRN (Reason: fever or pain) Qty: 30 0RF No Action bupropion HCl 100 mg tablet sustained-release 12 hr 2 tab PO DAILY alprazolam 0.25 mg tablet 1 tab PO BID methotrexate sodium 2.5 mg tablet 10 tab PO QWEEK Humira Pen 40 mg/0.8 mL pen injector kit subcut amoxicillin-pot clavulanate 875-125 mg tablet 1 tab PO Q12H 10 Days Qty: 20 0RF ibuprofen 600 mg tablet 600 mg PO Q6H PRN (Reason: pain) Qty: 90 0RF Referrals: Mac Frias MD [Physician] - 3 days
[2023-05-18 22:33] LABS: MANUAL DIFF FLAG NO
[2023-05-18 22:34] LABS: Basophils Absolute Auto 0.1 X10*3/uL (0.0-0.2); Basophils Percent Auto 0.7 % (0-2); Eosinophils Absolute Auto 0.1 X10*3/uL (0.0-0.4); Eosinophils Percent Auto 1.1 % (0-4); Hemoglobin 12.7 g/dl (12.0-16.0); Imm Gran Abs Auto 0.04 X10*3/uL (0.00-0.03); Imm Gran Pct Auto 0.4 % (0.0-0.4); Lymphocytes Absolute Auto 1.2 X10*3/uL (1.2-4.9); Mean Corpuscular HGB Conc 33.4 g/dl (31.0-35.0); Mean Corpuscular Volume 89.6 fL (80.0-98.0); Mean Platelet Volume 9.3 fL (9.4-12.3); Monocytes Absolute Auto 0.8 X10*3/uL (0.1-1.2); Monocytes Percent Auto 8.3 % (2-11); Neutrophils Percent Auto 76.5 % (45-73); Platelet Count 237 X10*3/uL (160-400); Red Blood Count 4.24 X10*6/uL (4.20-5.50); Red Cell Distribution Width 13.1 % (11.0-16.0); White Blood Count 9.1 X10*3/uL (4.8-10.8)
[2023-05-18 22:35] VITALS: BP 110/71; PULSE 65; RESP 16; TEMP 36.6; O2SAT 97
[2023-05-18 22:38] LABS: Appearance Urine Clear; Color Urine Yellow; Glucose Urine UA Negative (Negative); Leukocyte Esterase Urine Negative (Negative); Nitrite Urine Negative (Negative); PH 5.5 (5.0-9.0); Specific Gravity - Urine >= 1.030 (1.005-1.025); UMIC TRIGGER UACC YES; Urine Blood Large (3+) (Negative); Urine Ketones Trace mg/dL (Negative); Urine Protein Negative (Neg-Trace)
[2023-05-18 22:43] LABS: Bacteria Urine None Seen (None Seen); Hyaline Casts Urine 0-2 /LPF (0-2); Squamous Epithelial Cell Urine 0-2 /HPF (0-2); WBC Urine 0-5 /HPF (0-5)
[2023-05-18 22:52] LABS: Alanine Aminotransferase 24 U/L (0-31); Alkaline Phosphatase 57 U/L (39-117); Anion Gap 9 (12-20); Aspartate Amino Transferase 30 U/L (5-31); Bilirubin Direct 0.2 mg/dL (0.0-0.5); Bilirubin Total 0.7 mg/dL (0.0-1.0); Blood Urea Nitrogen 26 mg/dL (9-16); Calcium 9.6 mg/dL (8.4-10.2); Carbon Dioxide 30 mmol/L (22-29); Chloride 107 mmol/L (96-108); Creatinine Clr Calc Pharmacy 70.6; Estimated Glomerular Filt Rate > 60; Glucose Random 92 mg/dL (60-115); Lipase 25 U/L (8-78); Potassium 3.9 mmol/L (3.3-5.1); Sodium 142 mmol/L (135-145); Total Protein 6.7 g/dL (6.5-8.0)
[2023-05-19] VITALS: BP 111/61; PULSE 67; RESP 16; TEMP 36.6; O2SAT 95
[2023-05-19] MEDS: Tamsulosin HCL 0.4 MG CAPSULE PO (00:17)
== END 2023-05-19 00:22 | disposition home or self-care (01) ==
PROVIDERS: Emergency Medicine; Emergency Provider Internal Medicine; PCP Nurse Practitioner Family
DX: N13.2 Hydronephrosis with renal and ureteral calculous obstruction (principal); R11.2 Nausea with vomiting, unspecified; Z79.899 Other long term (current) drug therapy; Z87.442 Personal history of urinary calculi
CPT/HCPCS: 36415; 74176; 80048; 80076; 81001; 83690; 83735; 85025; 99284

== ENCOUNTER 2023-05-28 09:28 | Day surgery (SDC) | payer OTHER, SELFPAY ==
--- NOTE | 2023-05-27 10:47 | HO.ANESPROP2 ---
Documented by User: Ita Aburto NP 05/27/23 10:49 HPI - Anesthesia Eval Consult details Narrative: 52yo F for Left Neurectomy of foot medically cleared RA with humira and methotrexate PMFSH Active Problems Active Problems: All Active Problems (Updated 05/26/23 @ 14:51 by Shereen Baum RN) Nephrolithiasis (Acute) Past Medical History Medical History Scoliosis Renal stones Disc disorder of lumbar region Disc disorder of cervical region Depression Sleep apnea Interstitial cystitis Anxiety and depression Rheumatoid arthritis Family History Family history of problems with anesthesia: No Surgical History Surgical History H/O colonoscopy Hx of cystoscopy H/O dilation and curettage Hx of tonsillectomy History of Problems with Anesthesia: No Social History Social History Patient Tobacco Use Status: Never used Tobacco Advance Directives: No Advance Directives Information Provided: Yes Meds Allergies Allergy/AdvReac Type Severity Reaction Status Date / Time oxycodone Allergy Abdominal Verified 05/28/23 09:38 Pain Home Medications Medication Instructions Recorded Confirmed Last Taken Type adalimumab 40 mg/0.8 mL 40 mg subcut Q2W 05/26/22 05/28/23 05/12/23 History subcutaneous pen kit (Humira Pen) alprazolam 0.25 mg tablet 1 tab PO DAILY PRN Anxiety 05/26/22 05/28/23 Unknown History methotrexate sodium 2.5 mg tablet 10 tab PO QWEEK 05/26/22 05/28/23 05/21/23 History folic acid 1 mg tablet 3 mg PO DAILY 05/26/23 05/28/23 Unknown History indomethacin 75 mg 75 mg PO BEDTIME 05/28/23 05/28/23 Unknown History capsule,extended release Exam Pertinent Lab Results Pertinent Lab Results: Laboratory Tests 05/18/23 22:24 WBC 9.1 Hgb 12.7 Hct 38.0 Plt Count 237 Sodium 142 Potassium 3.9 Chloride 107 Carbon Dioxide 30 H BUN 26 H Creatinine 0.93 Assessment and Plan Assessment Anesthesia Assessment: Chart Reviewed Final Anesthetic Review Family History of Problems with Anesthesia: No History of Problems with Anesthesia: No Documented by User: Inessa Elliott MD 05/28/23 11:07 PMFSH Past Medical History Medical History Scoliosis Renal stones Disc disorder of lumbar region Disc disorder of cervical region Depression Sleep apnea Interstitial cystitis Anxiety and depression Rheumatoid arthritis Surgical History Surgical History H/O colonoscopy Hx of cystoscopy H/O dilation and curettage Hx of tonsillectomy Social History Social History Patient Tobacco Use Status: Never used Tobacco Advance Directives: No Advance Directives Information Provided: Yes Meds Allergies Allergy/AdvReac Type Severity Reaction Status Date / Time oxycodone Allergy Abdominal Verified 05/28/23 09:38 Pain Home Medications Medication Instructions Recorded Confirmed Last Taken Type adalimumab 40 mg/0.8 mL 40 mg subcut Q2W 05/26/22 05/28/23 05/12/23 History subcutaneous pen kit (Humira Pen) alprazolam 0.25 mg tablet 1 tab PO DAILY PRN Anxiety 05/26/22 05/28/23 Unknown History methotrexate sodium 2.5 mg tablet 10 tab PO QWEEK 05/26/22 05/28/23 05/21/23 History folic acid 1 mg tablet 3 mg PO DAILY 05/26/23 05/28/23 Unknown History indomethacin 75 mg 75 mg PO BEDTIME 05/28/23 05/28/23 Unknown History capsule,extended release Exam Airway Mallampati Class: II TM Dist: >3cm Neck ROM: Full Loose/Missing/Broken Teeth: No Heart: RRR Lungs: CTA Assessment and Plan Assessment Anesthesia Assessment: Anesthesia Plan Discussed Final Anesthetic Review NPO: Yes ASA Class: II Final Preanesthetic Review: Meds/Allgs Chart Reviewed, Consent Obtained/Reviewed and Anes Risks/Benef Reviewed Patient Risk: Low Procedure Risk: Low Anesthetic Plan Anesthetic Plan: MAC: Disposition: Standard PACU
[2023-05-28 09:49] VITALS: BMI 23.4
[2023-05-28 10:15] VITALS: BP 126/68; PULSE 65; RESP 15; TEMP 36.6; O2SAT 96
[2023-05-28] MEDS: Lactated Ringers 1,000 ML 100 ML IVCONT (10:16)
[2023-05-28 11:40] VITALS: BP 116/78; PULSE 64; RESP 18; TEMP 36.1; O2SAT 99
[2023-05-28 11:55] VITALS: BP 113/77; PULSE 49; RESP 16; O2SAT 99
[2023-05-28 12:10] VITALS: BP 122/78; PULSE 46; RESP 16; O2SAT 100
[2023-05-28 12:29] VITALS: BP 134/81; PULSE 47; RESP 18; TEMP 36.2; O2SAT 100
--- NOTE | 2023-05-29 01:48 | OP_ITS ---
DATE OF SERVICE: 05/28/2023 SURGEON: Caden Weiss DPM INDICATIONS: The patient is the patient of mine for some time now. The patient exhausted all conservative treatments including injections. 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 Patient understood the risks and benefits involving the surgery including infection and the possibility that surgery is not successful and pain continues. The patient understands all these risks and was consented from myself, the above surgeon, to do surgery on the above date. PREOPERATIVE DIAGNOSIS: Painful neuroma, second interspace, left. POSTOPERATIVE DIAGNOSIS: Painful neuroma, second interspace, left. PROCEDURE PERFORMED: Neurectomy, second interspace, left foot. ESTIMATED BLOOD LOSS: None. COMPLICATIONS: ANESTHESIA: Monitored MAC anesthesia with 15 cc of 1% plain lidocaine, 0.5% plain Marcaine in a 50:50 mixture. ASSISTANTS: None. SPECIMENS: MATERIALS: 3-0 Vicryl, 4-0 Nylon. INJECTABLES: Listed above. CONDITION: Patient tolerated anesthesia and procedure well. Patient was sent to recovery room in good stable condition with vital signs stable as per anesthesia. It must be noted that there was adequate perfusion to all 5 toes on the left foot following surgery and completion of the case. DESCRIPTION OF PROCEDURE: The patient was brought into the operating room via gurney and placed on the operating room table in supine position. Once the patient was given adequate amounts of moderate intravenous anesthesia, the above mentioned mixture of local anesthesia was injected into the left foot. The left foot was then prepped and draped in a normal sterile fashion. Incision was made over the second interspace of the left foot. A 15-blade was used in order to make an approximately 3 to 4 cm linear incision into the second interspace. It must be noted that separate blades were used after skin incision. Blunt and sharp dissection was used to go down all the way to the neuroma. It must be noted that the intermetatarsal ligament was freed, and there was a very large silver glistening structure underneath. This turned out to be a very large neuroma with tentacles. There were 3 seen distally as well as 3 proximally. These abrasions were traced back all the way to proximal, distal, and removed as well as the end were cauterized. Neuroma was localized using blunt and sharp dissection and once the branches were excised, they were once again also cauterized. It must be noted that copious amounts of normal sterile saline were used in order to lavage the area and no bone was disturbed during the procedure nor capsule nor tendon. 3-0 Vicryl was used in order to seal up the deep layer and 4-0 prolene for the superficial layers. Adaptic and Xeroform were placed over the incision site followed by Betadine soaked gauze. This was done after a peroxide scrub. Steri-strips ere noted applied. The patient had sterile dressing with ONIEL and stockinette as well. The patient was given postoperative CAM walker, and she was sent to recovery room in good stable condition with vital signs stable. The patient was provided with all postop instructions, postop pain medicines. The patient was given antibiotics intraoperatively as well as 15 of Toradol. The patient has a scheduled followup with me in 4 days time. HEMOSTASIS: None. YSABEL Osullivan/RAMILA / [phone]
== END 2023-05-28 12:55 | disposition home or self-care (01) ==
PROVIDERS: PCP Nurse Practitioner Family; Visit Provider Podiatrist
PROC: (CPT 28080; principal; 2023-05-28 10:40)
DX: G57.62 Lesion of plantar nerve, left lower limb (principal); G89.29 Other chronic pain; M06.9 Rheumatoid arthritis, unspecified; M41.9 Scoliosis, unspecified; M51.86 Other intervertebral disc disorders, lumbar region; M50.90 Cervical disc disorder, unspecified, unspecified cervical region; F41.8 Other specified anxiety disorders; N30.10 Interstitial cystitis (chronic) without hematuria; N20.0 Calculus of kidney; G47.33 Obstructive sleep apnea (adult) (pediatric); Z79.620 Long term (current) use of immunosuppressive biologic; Z79.899 Other long term (current) drug therapy; Z88.5 Allergy status to narcotic agent
CPT/HCPCS: 28080; 88305; 88312; J0665; J0690; J2250; J2704; J3010

== ENCOUNTER 2023-07-23 10:09 | Outpatient (AMB) | payer OTHER, SELFPAY ==
--- NOTE | 2023-07-23 10:20 | MHC.OFFVIS ---
Intake Vital Signs 07/23/23 10:29 Height 5 ft 8 in Weight 154 lb 6 oz BMI 23.5 BP 134/74 Blood Pressure Location Lt brachial Position Sitting Pulse 81 Intake Visit Reasons: gallstones bile duct Intake Note: Patient is seen in office for evaluation and treatment of gallstones. Pt c/o: onset for 20 yrs, had ultrasound done for the kidneys and was told about the stones in the gallbladder, pt has no symptoms related, denies nausea, vomit, diarrhea, constipation, or pain CT scan:05/18/23 [employer] Cutter Required: No Accompanied by: Self / Same As Patient Allergies oxycodone Allergy (Verified 07/23/23 10:29) Abdominal Pain Medication List - Last Reconciled 07/23/23 by Tomas Bryan MD adalimumab (Humira Pen) 40 mg subcut Q2W alprazolam 1 tab PO DAILY PRN folic acid 3 mg PO DAILY indomethacin ER 75 mg PO BEDTIME lamotrigine 5 mg PO DAILY methotrexate sodium 10 tabs PO QWEEK HPI HPI Comments History of Present Illness Details 52-year-old female patient presenting for evaluation of gallstones. She has a known history of kidney stones and has had numerous study showing a large gallstone within the gallbladder. The gallstone was 1st identified at least 20 years ago and has not changed significantly since then. She denies any abdominal symptoms of right upper quadrant abdominal pain, nausea, vomiting or fever/chills. She does have irritable bowel symptoms with alternating diarrhea and constipation. Her most recent CT scan from 05/18/2023 revealed a large calcified rimmed gallstone but no evidence of pericholecystic inflammatory changes. She presents today to discuss management of this gallstone. [facility] Medical History Scoliosis Renal stones Disc disorder of lumbar region Disc disorder of cervical region Depression Sleep apnea Interstitial cystitis Anxiety and depression Rheumatoid arthritis Surgical History H/O colonoscopy Hx of cystoscopy H/O dilation and curettage Hx of tonsillectomy Social History Alcohol intake: current Alcohol intake frequency: holidays/special occasions only Patient Tobacco Use Status: Never used Tobacco Review of Systems Const All systems reviewed & are unremarkable except as noted in HPI and below Physical Exam Vital Signs: Last Vital Signs Pulse 81 07/23/23 10:29 BP 134/74 07/23/23 10:29 BMI result Body Mass Index 23.5 Const General: cooperative and no acute distress Nutritional Appearance: well nourished Orientation/consciousness: patient oriented x3 Limitations: no limitations HEENT Head: Yes normocephalic and Yes atraumatic Ears: hearing grossly normal bilaterally Resp Effort & Inspection: normal respiratory effort, no audible wheezes, no cough and no respiratory distress Cardio Jugular venous distension: no JVD GI Other: Soft, nondistended, nontender, negative Zeng sign, no rebound, no rigidity. Inspection: Yes normal to inspection Skin Other: Warm, dry, no rash Neuro General: patient oriented x3 Extrem General: Yes no clubbing, cyanosis or edema Assessment & Plan Assessment & Plan (1) Cholelithiasis: Code(s): K80.20 - Calculus of gallbladder without cholecystitis without obstruction Qualifiers: Cholelithiasis location: gallbladder Cholecystitis presence: without cholecystitis Biliary obstruction: without biliary obstruction Qualified Code(s): K80.20 - Calculus of gallbladder without cholecystitis without obstruction Plan 52-year-old female patient presenting with a known history of cholelithiasis which has remained asymptomatic. Examination today reveals no evidence of acute cholecystitis. We reviewed the signs and symptoms of cholecystitis both chronic and acute. No surgical intervention is required at this time although she was encouraged to call should symptoms develop. She expressed understanding and agrees with the plan. Coding Level of Care Code New Pt Level 4 (00076) Diagnoses Calculus of gallbladder without cholecystitis without obstruction K80.20 Cholelithiasis location: gallbladder Cholecystitis presence: without cholecystitis Biliary obstruction: without biliary obstruction
[2023-07-23 10:29] VITALS: BP 134/74; PULSE 81; BMI 23.5
== END 2023-07-23 10:43 | disposition home or self-care (01) ==
PROVIDERS: PCP Nurse Practitioner Family; Visit Provider Surgery
DX: K80.20 Calculus of gallbladder without cholecystitis without obstruction (principal)
CPT/HCPCS: 99204

== ENCOUNTER → 2023-07-23 10:09 | Outpatient (BNVA) | payer OTHER, SELFPAY | PROVIDERS: PCP Nurse Practitioner Family; Visit Provider Surgery ==